=== PATIENT | male | born 1995 | race Caucasian/White ===

== ENCOUNTER 2021-11-20 19:50 | Emergency (ER) | payer OTHER ==
[~2021-11-20] VITALS: Ht 180.3 cm; Wt 149.7 kg
[2021-11-20 20:33] VITALS: BP 155/109
== END 2021-11-20 20:35 | disposition home or self-care (01) ==
LOC: ER 19:50
DX: S40.012A Contusion of left shoulder, initial encounter (principal); S46.912A Strain of unspecified muscle, fascia and tendon at shoulder and upper arm level, left arm, initial encounter; Z90.89 Acquired absence of other organs; V89.2XXA Person injured in unspecified motor-vehicle accident, traffic, initial encounter; Y93.89 Activity, other specified; Y92.89 Other specified places as the place of occurrence of the external cause; Y99.8 Other external cause status